=== PATIENT | female | born 1980 | race Caucasian/White ===

== ENCOUNTER 2017-10-19 14:19 | Emergency (ER) | payer BC, SELFPAY | END 2017-10-19 15:29 | disposition home or self-care (01) | PROVIDERS: Family Provider Family Medicine | DX: J01.10 Acute frontal sinusitis, unspecified (principal); M54.30 Sciatica, unspecified side; Z79.899 Other long term (current) drug therapy; Z88.0 Allergy status to penicillin | CPT/HCPCS: 99201 ==

== ENCOUNTER → 2018-04-24 17:00 | Outpatient (CLI) | payer BC, SELFPAY ==
--- NOTE | 2018-04-24 17:06 | XR_ITS ---
XR hand LT min 3V Ordering Physician: VINAYAK Quarles Patient Age: 38 years: Female HISTORY: ITS.REASON: INJURY OF LEFT HAND, INITIAL ENCOUNTER . And hand yesterday. Pain swelling. Pain mainly at wrist anterior aspect TECHNIQUE: 3 views left hand COMPARISON :None FINDINGS Left hand is intact with no fracture nor dislocation. The joint spaces are fairly well-maintained at the fingers and MCP joints. Carpals on with normal relationships. The slight undulation at the lateral waist of the navicular is most likely normal contour variation. IMPRESSION: Negative left hand . No acute fracture evident
== END ==
PROVIDERS: PCP Family Medicine; Visit Provider Physician Assistant
DX: S69.92XA Unspecified injury of left wrist, hand and finger(s), initial encounter (principal)
CPT/HCPCS: 73130

== ENCOUNTER → 2018-05-12 10:14 | Outpatient (POV) | payer BC, SELFPAY ==
[2018-05-12 10:40] VITALS: BP 110/68; PULSE 74; RESP 18; O2SAT 98
--- NOTE | 2018-05-12 12:48 | HMH.PMCON ---
Assessment and Plan (1) Sacroiliitis Current visit: Yes Status: Chronic Category: Medical Code(s): M46.1 - Sacroiliitis, not elsewhere classified (2) Piriformis syndrome Current visit: Yes Status: Chronic Category: Medical Code(s): G57.00 - Lesion of sciatic nerve, unspecified lower limb - Assessment and plan all Dx Assessment and Plan for all problems:: We will schedule a right SI joint injection right piriformis injection for the patient. I believe it would be beneficial given her symptomology. I will follow-up with the patient after her injection. Patient is not on any anticoagulation therapy. Patient is tried and failed conservative measures. Patient is continuing to do home stretching regimen at home. This note was dictated using voice recognition software and may contain errors or omissions HPI - Data of Consult Consult date: 05/12/18 Requesting Physician: Tammy Julian APRN Primary Care Provider: Moy Arias MD Family Provider: Moy Arias MD - Consult Narrative Reason for consult: Right hip pain History of present illness: Ms. Bo is a 38 year old female who presents today for consult in regard to her right hip pain. Patient states that 3 years ago while exercising she had an injury. Patient states since then she has had continual piriformis pain and now has right hip pain. Patient has been seen by Dr. Salinas at [facility] sports medicine and received piriformis injections with little to no relief. Patient has tried chiropractic therapy and physical therapy with some relief. Patient also tried massage therapy. Patient is on an anti-inflammatory regimen. Patient in a 7 out of 10. States that sitting increases her pain while standing decreases her pain. CC: Tammy Julian APRN [facility] History I have reviewed the patient's past medical history: Yes Medical History: Reports:: Heart Murmur Other Surgeries: Yes: No Previous Surgery - *Social History Smoking Status: Never smoker Alcohol Intake: never Substance Use Type: denies use Occupational Status: other Housing: house - Psychiatric History Expresses thoughts of harming self/others: None Suicide Plan Description: No Plan *Family Hx:: Hyperlipidemia Review of Systems - Review of Systems ROS General: no recent weight change, no fever, no sleep disturbances Respiratory: no cough, no shortness of air, no recurring pulmonary infections Cardiovascular/Peripheral Vascular: No chest pain, No palpitations, no edema, no shortness of breath. Gastrointestinal: no incontinence, normal bowel movements reported Genitourinary: no incontinence Musculoskeletal: Right hip pain right SI joint pain, right piriformis pain Psychiatric: normal mood/ affect Neurological: [denies weakness in extremities], [denies balance issues] Meds Allergies Allergy/AdvReac Type Severity Reaction Status Date / Time PCN (PENICILLIN) Allergy Mild I-RASH Uncoded 12/02/17 16:56 Objective Vital signs: Pulse Resp BP Pulse Ox 74 18 110/68 98 05/12/18 10:40 05/12/18 10:40 05/12/18 10:40 05/12/18 10:40 Narrative: Physical Exam General: Alert and oriented x3, no acute distress, pleasant and cooperative, [on room air] Lungs: Resps E/U, Symmetrical chest expansion, Eyes: PERRL Musculoskeletal: Flexion and extension of lumbar spine somewhat guarded secondary to pain, deep tendon reflexes normal, strength in upper and lower extremities [5/5], slightly antalgic gait noted, positive Shin's test on the right side, extreme point tenderness over right piriformis and right SI joint Neurological: speech clear, trade recruiter equal, no gross sensory deficits Opioid Risk Tool - Opioid Risk Tool-Female Family hx alcohol abuse: N Family hx illegal drugs: N Family hx rx drug abuse: N Personal hx alcohol abuse: N Personal hx illegal drugs: N Personal hx rx drug abuse: N Age: 16-45 H
--- NOTE | 2018-05-12 12:51 | P.CONS_ITS ---
Assessment and Plan (1) Sacroiliitis Current visit: Yes Status: Chronic Category: Medical Code(s): M46.1 - Sacroiliitis, not elsewhere classified (2) Piriformis syndrome Current visit: Yes Status: Chronic Category: Medical Code(s): G57.00 - Lesion of sciatic nerve, unspecified lower limb - Assessment and plan all Dx Assessment and Plan for all problems:: We will schedule a right SI joint injection right piriformis injection for the patient. I believe it would be beneficial given her symptomology. I will follow-up with the patient after her injection. Patient is not on any anticoagulation therapy. Patient is tried and failed conservative measures. Patient is continuing to do home stretching regimen at home. This note was dictated using voice recognition software and may contain errors or omissions HPI - Data of Consult Consult date: 05/12/18 Requesting Physician: Tammy Julian APRN Primary Care Provider: Moy Arias MD Family Provider: Moy Arias MD - Consult Narrative Reason for consult: Right hip pain History of present illness: Ms. Bo is a 38 year old female who presents today for consult in regard to her right hip pain. Patient states that 3 years ago while exercising she had an injury. Patient states since then she has had continual piriformis pain and now has right hip pain. Patient has been seen by Dr. Salinas at [facility] sports medicine and received piriformis injections with little to no relief. Patient has tried chiropractic therapy and physical therapy with some relief. Patient also tried massage therapy. Patient is on an anti-inflammatory regimen. Patient in a 7 out of 10. States that sitting increases her pain while standing decreases her pain. CC: Tammy Julian APRN [facility] History I have reviewed the patient's past medical history: Yes Medical History: Reports:: Heart Murmur Other Surgeries: Yes: No Previous Surgery - *Social History Smoking Status: Never smoker Alcohol Intake: never Substance Use Type: denies use Occupational Status: other Housing: house - Psychiatric History Expresses thoughts of harming self/others: None Suicide Plan Description: No Plan *Family Hx:: Hyperlipidemia Review of Systems - Review of Systems ROS General: no recent weight change, no fever, no sleep disturbances Respiratory: no cough, no shortness of air, no recurring pulmonary infections Cardiovascular/Peripheral Vascular: No chest pain, No palpitations, no edema, no shortness of breath. Gastrointestinal: no incontinence, normal bowel movements reported Genitourinary: no incontinence Musculoskeletal: Right hip pain right SI joint pain, right piriformis pain Psychiatric: normal mood/ affect Neurological: [denies weakness in extremities], [denies balance issues] Meds Allergies Allergy/AdvReac Type Severity Reaction Status Date / Time PCN (PENICILLIN) Allergy Mild I-RASH Uncoded 12/02/17 16:56 Objective Vital signs: Pulse Resp BP Pulse Ox 74 18 110/68 98 05/12/18 10:40 05/12/18 10:40 05/12/18 10:40 05/12/18 10:40 Narrative: Physical Exam General: Alert and oriented x3, no acute distress, pleasant and cooperative, [ on room air] Lungs: Resps E/U, Symmetrical chest expansion, Eyes: PERRL Musculoskeletal: Flexion and extension of lumbar spine somewhat guarded seco
== END ==
PROVIDERS: Family Provider Family Medicine; PCP Family Medicine; Visit Provider Clinical Nurse Specialist Family Health
DX: M46.1 Sacroiliitis, not elsewhere classified (principal); G57.00 Lesion of sciatic nerve, unspecified lower limb
CPT/HCPCS: 99202

== ENCOUNTER → 2018-08-18 15:16 | Outpatient (POV) | payer BC, SELFPAY ==
[2018-08-18 15:55] VITALS: BP 106/62; PULSE 70; RESP 18; O2SAT 98; BMI 21.6
--- NOTE | 2018-08-19 08:19 | HMH.PAINSOAP ---
[facility] Pain Management SOAP Note Subjective:: Patient is a pleasant 38-year-old white female who presents today for follow-up after right SI joint injection and right piriformis injection. Patient had no pain for the first week after the injection and she had relief in her pain that is still continuing. Patient would like to repeat this. Patient's continuing a home stretching program. Patient has tried and failed physical therapy, medications, anti-inflammatories. She rates her pain a 5 out of 10 today. ROS General: no recent weight change, no fever, no sleep disturbances Respiratory: no cough, no shortness of air, no recurring pulmonary infections Cardiovascular/Peripheral Vascular: No chest pain, No palpitations, no edema, no shortness of breath. Gastrointestinal: no incontinence, normal bowel movements reported Genitourinary: no incontinence Musculoskeletal: Right SI joint pain, right piriformis pain Psychiatric: normal mood/ affect Neurological: [denies weakness in extremities], [denies balance issues] Objective:: Physical Exam General: Alert and oriented x3, no acute distress, pleasant and cooperative, [on room air] Lungs: Resps E/U, Symmetrical chest expansion, Eyes: PERRL Musculoskeletal: Flexion and extension of lumbar spine somewhat guarded secondary to pain, deep tendon reflexes normal, strength in upper and lower extremities [5/5], normal gait noted, positive Shin's test on the right side, extreme point tenderness over right piriformis Neurological: speech clear, business systems developer equal, no gross sensory deficits Assessment:: Sacroiliitis, myofascial syndrome, piriformis syndrome Plan:: We will schedule a repeat right SI joint injection right piriformis injection patient. We will also put her on anti-inflammatories. I will follow-up with the patient after her injection. This note was dictated using voice recognition software and may contain errors or omissions
== END ==
PROVIDERS: Family Provider Family Medicine; PCP Family Medicine; Visit Provider Clinical Nurse Specialist Family Health
DX: M46.1 Sacroiliitis, not elsewhere classified (principal); M79.10 Myalgia, unspecified site; G57.00 Lesion of sciatic nerve, unspecified lower limb
CPT/HCPCS: 99213